=== PATIENT | female | born 1950 | race Caucasian/White ===

== ENCOUNTER → 2019-04-24 | Day surgery (SDC) | payer OTHER ==
--- NOTE | 2019-04-24 10:57 | RAD REPORT ---
EXAM DESCRIPTION: US - Thyroid Para Parotid Gland - 04/24/2019 10:25 am CLINICAL HISTORY: E04.1 COMPARISON: Thyroid Para Parotid Gland dated 04/10/2019 FINDINGS: The examination was performed for pre-procedure planning for left thyroid lobe nodule potential FNA p rocedure. The nodule of interest in the deep left lobe of the thyroid is quite vague and quite deep posteriorly located, not amenable to ultrasound-guided FNA procedure. The right lobe of the thyroid measures 4.8 x 2.0 cm. The left lobe of thyroid measures 4.4 x 1.5 cm. IMPRESSION: Normal sized thyroid gland noted. The vague posteriorly located left lobe nodule is very deep posteriorly located and not amenable to ultrasound-guided FNA procedure.
== END ==
LOC: FNA 09:51
PROVIDERS: ATTEND Family Medicine
DX: E04.1 Nontoxic single thyroid nodule (principal); Z53.9 Procedure and treatment not carried out, unspecified reason
CPT/HCPCS: 76536